=== PATIENT | female | born 1990 | race Caucasian/White ===

== ENCOUNTER 2020-06-12 17:03 | Emergency (ER) | payer BC ==
[~2020-06-12] VITALS: Ht 185.4 cm; Wt 125.0 kg
[2020-06-12 17:06] VITALS: BP 129/88
== END 2020-06-12 17:38 | disposition home or self-care (01) ==
LOC: ER 17:04
DX: U07.1 COVID-19 (principal)
CPT/HCPCS: 36415; 87635; 99283